=== PATIENT | male | born 1970 | race Two or more races ===

== ENCOUNTER 2024-06-15 08:49 | Observation (INO) | payer OTHER ==
[~2024-06-15] VITALS: Ht 182.9 cm; Wt 109.2 kg
[2024-06-15 09:44] LABS: BASO # 0.1 10^3/uL (0.0-0.2); BASO % 0.6 % (0.0-1.0); EOS # 0.1 10^3/uL (0.0-0.5); EOS % 0.6 % (0.0-3.0); HEMATOCRIT 53.3 % (42.0-52.0); HEMOGLOBIN 17.8 g/dl (13.5-17.5); LYMPH # 1.4 10^3/uL (1.5-5.0); LYMPH % 8.4 % (24.0-44.0); MEAN CORPUSCULAR HEMOGLOBIN 29.6 pg (27.0-33.0); MEAN CORPUSCULAR HGB CONC 33.4 g/dl (32.0-36.5); MEAN CORPUSCULAR VOLUME 88.7 fl (80.0-96.0); MONO # 1.8 10^3/uL (0.0-0.8); MONO % 10.9 % (2.0-8.0); NEUTROPHILS # 12.8 10^3/uL (1.5-8.5); NEUTROPHILS % 78.6 % (36.0-66.0); PLATELET COUNT, AUTOMATED 284 10^3/uL (150-450); RED BLOOD COUNT 6.01 10^6/uL (4.30-6.10); WHITE BLOOD COUNT 16.3 10^3/uL (4.0-10.0)
[2024-06-15 10:05] LABS: BLOOD UREA NITROGEN 14 MG/DL (9-23); CALCIUM LEVEL 10.6 MG/DL (8.5-10.1); CARBON DIOXIDE LEVEL 29 MMOL/L (20-31); CHLORIDE LEVEL 100 MMOL/L (98-107); CREATININE FOR GFR 1.03 MG/DL (0.70-1.30); GLOMERULAR FILTRATION RATE > 60.0 (>56); GLUCOSE, FASTING 243 MG/DL (60-100); SODIUM LEVEL 138 MMOL/L (136-145)
[2024-06-15 10:09] LABS: THYROID STIMULATING HORMONE 0.451 uIU/ML (0.55-4.78)
[2024-06-15 10:44] LABS: HIV 1&2 SCREEN NEGATIVE (NEGATIVE)
[2024-06-15 10:51] LABS: LIPASE 49 U/L (12-53)
[2024-06-15 10:53] LABS: ALBUMIN 3.9 G/DL (3.2-5.2); ALKALINE PHOSPHATASE 88 U/L (40-129); ALT/SGPT 64 U/L (7.0-40); AST/SGOT 31 U/L (<34); BILIRUBIN,DIRECT 0.3 MG/DL (<0.4); TOTAL PROTEIN 7.6 G/DL (5.7-8.2)
[2024-06-15] MEDS ORDERED: ISOVUE-370 76% 100ML VIAL As Ordered ONE (12:36)
[2024-06-15] MEDS ORDERED: ATEN50TA2 PO (13:10)
[2024-06-15] MEDS ORDERED: TRIA1OI TOP (13:10)
[2024-06-15] MEDS ORDERED: OMEP-173 PO (13:10)
[2024-06-15] MEDS ORDERED: STEG15TA PO (13:10)
[2024-06-15] MEDS ORDERED: HYDR-3490 PO (13:10)
[2024-06-15] MEDS ORDERED: INSU100V19 SC (13:10)
[2024-06-15] MEDS ORDERED: LANTINJ4 SC ×2 (13:10)
[2024-06-15] MEDS ORDERED: ASPI81TA26 PO (13:10)
[2024-06-15] MEDS ORDERED: SEMA1PEN2 SQ (13:10)
[2024-06-15] MEDS ORDERED: METF10004 PO (13:10)
[2024-06-15] MEDS ORDERED: HOME MED LIST COMPLETE! XX SCH (13:10)
[2024-06-15] MEDS ORDERED: IBUP1TAB6 PO (13:10)
[2024-06-15] MEDS ORDERED: TRIAMCINOLONE ACET 0.1% OINTMENT 15GM TOP PRN (13:25)
[2024-06-15] MEDS ORDERED: GLUCOSE 4 GM CHEW PO PRN (13:25)
[2024-06-15] MEDS ORDERED: ACETAMINOPHEN 325 MG TAB PO PRN (13:25)
[2024-06-15] MEDS ORDERED: GLUCAGON INJ 1MG VIAL SC PRN (13:25)
[2024-06-15] MEDS ORDERED: DEXTROSE 50% 50ML SYRINGE IV PRN (13:25)
[2024-06-15 14:19] LABS: FREE T4 1.01 NG/DL (0.89-1.76)
[2024-06-15] MEDS: OMEPRAZOLE 20MG CAP PO SCH (14:28)
[2024-06-15] MEDS: ASPIRIN 81MG ENTERIC TABLET PO SCH (14:28)
[2024-06-15] MEDS: atenoloL 50 MG TAB PO SCH (14:29)
[2024-06-15] MEDS: INSULIN LISPRO (NovoLOG) PER UNIT SC SCH ×2 (14:30→20:25)
[2024-06-15 14:38] LABS: HEPATITIS B SURFACE ANTIGEN NEGATIVE (NEGATIVE)
[2024-06-15] MEDS: LEVEMIR (INSULIN DETEMIR) 1 UNITS/0.01ML SC SCH ×2 (14:57→20:23)
[2024-06-15 14:59] LABS: HEPATITIS B CORE ANTIBODY IGM NEGATIVE (NEGATIVE); HEPATITIS C VIRUS ABY INDEX < 0.02 INDEX (<0.8)
[2024-06-15 15:38] VITALS: BP 139/84; TEMP 96.8; O2SAT 99
[2024-06-15 15:40] VITALS: BP 139/84; TEMP 96.8; O2SAT 99
[2024-06-15] MEDS: LevoFLOXacin 750 MG TABLET PO SCH (16:02)
[2024-06-15] MEDS: LR 500 ML IV SCH (16:02)
[2024-06-15 16:19] LABS: APPEARANCE, URINE CLEAR (CLEAR); BACTERIA, URINE AUTO NEGATIVE (NEGATIVE); BILIRUBIN, URINE AUTO NEGATIVE (NEGATIVE); BLOOD, URINE BLOOD NEGATIVE (NEGATIVE); COLOR, URINE YELLOW (YELLOW); GLUCOSE, URINE (UA) AUTO 3+ mg/dL (NEGATIVE); KETONE, URINE AUTO TRACE mg/dL (NEGATIVE); LEUKOCYTE ESTERASE, URINE AUTO NEGATIVE (NEGATIVE); MUCUS, URINE SMALL (NEGATIVE); NITRITE, URINE AUTO NEGATIVE (NEGATIVE); PROTEIN, URINE AUTO NEGATIVE (NEGATIVE); RBC, URINE AUTO 0 /HPF (0-3); SPECIFIC GRAVITY URINE AUTO 1.056 (1.002-1.035); SQUAMOUS EPITHELIAL CELL UR AU 0 /HPF (0-6); UROBILINOGEN, URINE AUTO 0.2 mg/dL (0.0-2.0); WBC, URINE AUTO 0 /HPF (0-3)
[2024-06-15 16:45] LABS: AMPHETAMINES LEVEL URINE NEGATIVE (NEGATIVE); BARBITURATES URINE NEGATIVE (NEGATIVE); BENZODIAZEPINES URINE NEGATIVE (NEGATIVE); CANNABINOIDS URINE NEGATIVE (NEGATIVE); METHADONE URINE NEGATIVE (NEGATIVE); OPIATES URINE NEGATIVE (NEGATIVE); PHENCYCLIDINE URINE NEGATIVE (NEGATIVE)
[2024-06-15 16:46] LABS: COCAINE METABOLITE URINE NEGATIVE (NEGATIVE)
[2024-06-15 20:00] VITALS: BP 132/82; TEMP 97.3; O2SAT 95
[2024-06-15] MEDS: HEPARIN SOD (PORCINE) 5000UNITS/ML 1ML VIAL/SYRINGE SC SCH (20:24)
[2024-06-15] MEDS: REMDESIVIR 200 MG in NS 250 ML IV ONE (20:24)
[2024-06-16] VITALS (7 sets, daily range): BP systolic 129–160; BP diastolic 76–80; TEMP 96.8–97.7; O2SAT 95–96
[2024-06-16 06:04] LABS: HEMATOCRIT 48.6 % (42.0-52.0); HEMOGLOBIN 16.1 g/dl (13.5-17.5); MEAN CORPUSCULAR HEMOGLOBIN 29.6 pg (27.0-33.0); MEAN CORPUSCULAR HGB CONC 33.1 g/dl (32.0-36.5); MEAN CORPUSCULAR VOLUME 89.3 fl (80.0-96.0); PLATELET COUNT, AUTOMATED 236 10^3/uL (150-450); RED BLOOD COUNT 5.44 10^6/uL (4.30-6.10); WHITE BLOOD COUNT 11.1 10^3/uL (4.0-10.0)
[2024-06-16 06:28] LABS: BLOOD UREA NITROGEN 18 MG/DL (9-23); CALCIUM LEVEL 9.5 MG/DL (8.5-10.1); CARBON DIOXIDE LEVEL 29 MMOL/L (20-31); CHLORIDE LEVEL 105 MMOL/L (98-107); CREATININE FOR GFR 0.89 MG/DL (0.70-1.30); GLOMERULAR FILTRATION RATE > 60.0 (>56); GLUCOSE, FASTING 168 MG/DL (60-100); POTASSIUM SERUM 4.2 MMOL/L (3.5-5.1); SODIUM LEVEL 142 MMOL/L (136-145)
[2024-06-16] MEDS ORDERED: NIRM1TAB14 PO (14:37)
[2024-06-16] MEDS ORDERED: LEVO75TAB PO (14:37)
[2024-06-16] MEDS: REMDESIVIR 100 MG in NS 100 ML IV SCH (15:47)
== END 2024-06-16 18:09 ==
LOC: M ED 08:49 → M ED INP 13:25 → M MSPAV 15:45
PROVIDERS: ADMIT Student in an Organized Health Care Education/Training Program; ATTEND Student in an Organized Health Care Education/Training Program
DX: U07.1 COVID-19 (principal); I10 Essential (primary) hypertension; E11.9 Type 2 diabetes mellitus without complications; Z79.4 Long term (current) use of insulin; I25.10 Atherosclerotic heart disease of native coronary artery without angina pectoris; D72.829 Elevated white blood cell count, unspecified; K21.9 Gastro-esophageal reflux disease without esophagitis; Z79.82 Long term (current) use of aspirin; Z79.84 Long term (current) use of oral hypoglycemic drugs; Z88.0 Allergy status to penicillin; Z88.8 Allergy status to other drugs, medicaments and biological substances
CPT/HCPCS: 36415; 70450; 71045; 71275; 76705; 80048; 80074; 80076; 80307; 81001; 83690; 83880; 84439; 84443; 84484; 85025; 85027; 87040; 87389; 87486; 87581; 87633; 87641; 87798; 93005; 93041; 93306; 94760; 96361; 96365; 96366; 96372; 97161; 99285; J0248; J1815; Q9967